=== PATIENT | female | born 1940 | race African-American/Black ===

== ENCOUNTER 2017-03-16 09:25 | Emergency (ER) | payer OTHER ==
[~2017-03-16] VITALS: Ht 160 cm; Wt 97.5 kg
[~2017-03-16 09:25] MED LIST: ANTIVERT25 MG PO; ASPIRIN81 M1 PO; BONIVA150 MG PO; CARLSON VITAM2000 IU PO; CENTRUM1 TA1 PO; CLOTRIMAZOLE TP; CREON 120000 U-1 ECC PO; DULERA1 AR1 IH; EXFORGE HCT 101 TAB PO; FLONASE NASAL50 MCG NS; FLOVENT DI50 MCG/Act IH; HYDROCORTISONE; LIPITOR20 MG PO; LUMIGAN 2.5 ML2.5 M1 OP; METOLAZONE2.5 M1 PO; OMEGA-3 FISH1200 MG PO; PRILOSEC20 M1 PO; RANITIDINE 150150 MG PO; SYSTANE LUBRICAN5 ML OP; VALACYCLOVIR H500 M1 PO; VITAMIN D NATU400 IU PO; VOLTAREN GEL1% TP; [UNRECOGNIZED DRUG - CODE] PO; [UNRECOGNIZED DRUG - OTHER] PO
[2017-03-16] MEDS ORDERED: CYCLOBENZAPRINE 10 MG TAB PO ONE (09:40)
[2017-03-16] MEDS ORDERED: oxyCODONE/APAP 5/325 MG 1 TAB TAB PO ONE (09:40)
--- NOTE | 2017-03-16 09:48 | NUR ---
Patient going to CT via wheelchair per tech.
--- NOTE | 2017-03-16 10:03 | NUR ---
Patient back from CT via wheelchair per tech.
[2017-03-16 10:12] VITALS: BP 121/74
--- NOTE | 2017-03-16 11:04 | NUR ---
Patient ambulated to bed 05.
--- NOTE | 2017-03-16 11:10 | NUR ---
PT PRESENTS TO ER W/C/O ABDOMINAL/BACK PAIN X1 WEEK. PT STATES SHE WAS SEEN AT [facility] 1 WEEK AGO W/SAME S/SX AND DX W/GERD. HX GERD, HYPERLIPIDEMIA, HTN AND VERTIGO.DENIES N/V/D; SKIN IS PINK/WARM/DRY; AAOX4 WITH EVEN AND STEADY GAIT; LUNGS CLEAR BL; HR EVEN AND REGULAR; PT DENIES ANY FEVER, CP, SOB, OR COUGH AT THIS TIME; PATIENT STATES PAIN OF 4/10 AT THIS TIME; PAIN IS INTERMITTENT;PATIENT POSITIONED FOR COMFORT; HOB ELEVATED; BEDRAILS UP X2; BED DOWN. ALL MONITORS IN PLACED.
[2017-03-16] MEDS ORDERED: ONDANSETRON 4 MG ODT PO ONE (11:20)
--- NOTE | 2017-03-16 11:51 | NUR ---
Dr. Platt evaluating patient at bedside.
--- NOTE | 2017-03-16 11:57 | NUR ---
PT AMBULATED TO THE RESTROOM;NO ACUTE DISTRESS NOTED;WILL CONTINUE TO MONITOR PT.
--- NOTE | 2017-03-16 12:00 | NUR ---
PT STATES SHE DON'T FEEL PAIN RIGHT NOW;NO MOANING/FACIAL GRIMMACING NOTED;WILL CONTINUE TO MONITOR PT.
--- NOTE | 2017-03-16 12:40 | NUR ---
Patient discharged with v/s stable. Written and verbal after care instructions given and explained. Patient alert, oriented and verbalized understanding of instructions. Ambulatory with steady gait. All questions addressed prior to discharge. ID band removed. Patient advised to follow up with PMD. Rx of PERCOCET AND FLEXERIL given. Patient educated on indication of medication including possible reaction and side effects. Opportunity to ask questions provided and answered.
[2017-03-16 12:42] VITALS: BP 107/78
== END 2017-03-16 12:40 | disposition home or self-care (01) ==
LOC: MED 09:25
DX: D17.1 Benign lipomatous neoplasm of skin and subcutaneous tissue of trunk (principal); M54.5 Low back pain; J45.909 Unspecified asthma, uncomplicated; K21.9 Gastro-esophageal reflux disease without esophagitis; I10 Essential (primary) hypertension; Z85.3 Personal history of malignant neoplasm of breast; Z90.49 Acquired absence of other specified parts of digestive tract; Z90.89 Acquired absence of other organs; Z79.82 Long term (current) use of aspirin; Z79.899 Other long term (current) drug therapy; Z88.8 Allergy status to other drugs, medicaments and biological substances
CPT/HCPCS: 74176; 93005; 99284; S0119

== ENCOUNTER 2017-10-09 12:06 | Emergency (ER) | payer OTHER ==
[~2017-10-09] VITALS: Ht 160 cm; Wt 100.5 kg
[~2017-10-09 12:06] MED LIST changes: +AMLO1TAB PO; +AMYL-13 PO; -ANTIVERT25 MG PO; +ASPI81CT89 PO; -ASPIRIN81 M1 PO; +ATOR20TA PO; +BIMA2.5S3 OP; -BONIVA150 MG PO; -CARLSON VITAM2000 IU PO; -CENTRUM1 TA1 PO; +CHOL400T PO; +CLOT30SO TP; -CLOTRIMAZOLE TP; -CREON 120000 U-1 ECC PO; +DICL1GEL11 TP; -DULERA1 AR1 IH; -EXFORGE HCT 101 TAB PO; +FLONAS NS; -FLONASE NASAL50 MCG NS; -FLOVENT DI50 MCG/Act IH; +FLUT50PO IH; +FORM1 IH; +HYDR1POW; -HYDROCORTISONE; +IBAN150T PO; -LIPITOR20 MG PO; -LUMIGAN 2.5 ML2.5 M1 OP; +MECL-305 PO; +METO2.5T1 PO; -METOLAZONE2.5 M1 PO; +MULT-2000 PO; -OMEGA-3 FISH1200 MG PO; +OMEP20EC4 PO; -PRILOSEC20 M1 PO; +RANI-451 PO; -RANITIDINE 150150 MG PO; -SYSTANE LUBRICAN5 ML OP; -VALACYCLOVIR H500 M1 PO; +VITA20003 PO; -VITAMIN D NATU400 IU PO; -VOLTAREN GEL1% TP; +[UNRECOGNIZED DRUG - CODE] OP; +[UNRECOGNIZED DRUG - CODE] PO; +[UNRECOGNIZED DRUG - CODE] PO; +[UNRECOGNIZED DRUG - CODE] PO; -[UNRECOGNIZED DRUG - CODE] PO; -[UNRECOGNIZED DRUG - OTHER] PO
[2017-10-09 12:42] VITALS: BP 130/78
--- NOTE | 2017-10-09 12:49 | NUR ---
NO BED AVAILABLE AT THIS TIME, PT AMBULATES BACK TO THE [facility]
--- NOTE | 2017-10-09 14:53 | NUR ---
PT TO BED 2
--- NOTE | 2017-10-09 15:00 | NUR ---
Received ALOX4 with pt c/o diarrhea over the past few day, placed on CR monitor alarms set sl placed on lt ac 20g site without redness or swelling at this time.
--- NOTE | 2017-10-09 15:03 | NUR ---
Received ALOX4 with pt c/o diarrhea over the past 7 day.
[2017-10-09] MEDS ORDERED: NACL 0.9% 1,000 ML IV SCH (16:11)
[2017-10-09] MEDS: ONDANSETRON 4 MG/2 ML VIAL IVP ONE (16:34)
[2017-10-09 16:40] LABS: BASOPHILS # (AUTO) 0.4 K/uL (0.00-0.22); HEMATOCRIT 44.2 % (36-48); HEMOGLOBIN 14.2 g/dL (12.0-16.0); LYMPHOCYTES # (AUTO) 1.5 K/uL (2.5-16.5); MEAN CORPUSCULAR HEMOGLOBIN 26 pg (27-31); MEAN CORPUSCULAR HGB CONC 32 g/dL (33-37); MEAN CORPUSCULAR VOLUME 81 fL (80-94); MONOCYTES # (AUTO) 0.3 K/uL (0.8-1.0); PLATELET COUNT (AUTO) 172 K/uL (140-450); RED BLOOD CELL COUNT(AUTO) 5.44 MIL/uL (4.20-5.40); RED CELL DISTRIBUTION WIDTH 13.4 % (11.6-13.7); WHITE BLOOD COUNT (AUTO) 8.2 K/uL (4.8-10.8)
[2017-10-09 16:48] LABS: ANION GAP 13.8 (8-16); CARBON DIOXIDE 25.3 mmol/L (21-32); CHLORIDE 103 mmol/L (98-107); CREATININE 1.2 mg/dL (0.6-1.3); GLUCOSE 84 mg/dL (74-106); POTASSIUM 3.1 mmol/L (3.5-5.1); SODIUM SERUM 139 mmol/L (136-145); UREA NITROGEN, BLOOD 26 mg/dL (7-18)
[2017-10-09 16:55] LABS: ALBUMIN 3.4 g/dL (3.4-5.0); ASPARTATE AMINOTRANSFERASE 28 U/L (15-37); LIPASE 77 U/L (73-393); TOTAL BILIRUBIN 0.6 mg/dL (0.0-1.0)
[2017-10-09] MEDS: POTASSIUM CHLORIDE 10 MEQ TABER PO ONE (17:54)
[2017-10-09 18:55] LABS: APPEARANCE,URINE CLEAR (CLEAR); BILIRUBIN,URINE 1+ (NEGATIVE); BLOOD, URINE NEGATIVE (NEGATIVE); COLOR,URINE YELLOW (YELLOW); LEUKOCYTE ESTERASE ,URINE NEGATIVE (NEGATIVE); NITRITE, URINE NEGATIVE (NEGATIVE); PH,URINE 5.5 (5.0-9.0); UGLUCOSE NEGATIVE (NEGATIVE)
[2017-10-09 19:02] LABS: RBC,URINE 0-5 (RARE) /HPF (0-5); WBC,URINE 0-5 (RARE) /HPF (0-5)
[2017-10-09 19:17] VITALS: BP 110/62
--- NOTE | 2017-10-09 19:18 | NUR ---
Patient discharged with v/s stable. Written and verbal after care instructions given and explained. Patient alert, oriented and verbalized understanding of instructions. Ambulatory with to home. All questions addressed prior to discharge. ID band removed. Patient advised to follow up with PMD. Rx of Zofran odt given. Patient educated on indication of medication including possible reaction and side effects. Opportunity to ask questions provided and answered.
== END 2017-10-09 19:17 | disposition home or self-care (01) ==
LOC: MED 12:06
DX: A08.4 Viral intestinal infection, unspecified (principal); J45.909 Unspecified asthma, uncomplicated; K21.9 Gastro-esophageal reflux disease without esophagitis; I10 Essential (primary) hypertension; Z85.3 Personal history of malignant neoplasm of breast; Z90.49 Acquired absence of other specified parts of digestive tract; Z90.710 Acquired absence of both cervix and uterus; Z79.899 Other long term (current) drug therapy; Z88.2 Allergy status to sulfonamides; Z88.5 Allergy status to narcotic agent; Z79.82 Long term (current) use of aspirin
CPT/HCPCS: 36415; 74176; 80053; 81001; 83690; 85025; 96374; 99285; J2405; J7030